=== PATIENT | male | born 1940 | race African-American/Black ===

== ENCOUNTER 2020-01-25 15:07 | Inpatient (IN) | payer MEDICARE, MEDICAID ==
[~2020-01-25] VITALS: Ht 188 cm; Wt 73.7 kg
[2020-01-25] MEDS ORDERED: SODIUM CHLORIDE 0.9% 1,000 ML IV ONE (15:39)
[2020-01-25] MEDS ORDERED: MORPHINE SULFATE 4 MG/ML CPJ (NOT FOR IM USE) IV STA (15:39)
[2020-01-25] MEDS ORDERED: ONDANSETRON HCL 4MG/2ML INJ IV STA (15:39)
[2020-01-25 17:40] LABS: CHLORIDE 95 mEq/L (98-107); PARTIAL THROMBOPLASTIN TIME 30.3 sec (23.4-31.0); PROTHROMBIN TIME 11.3 sec (9.6-11.0)
[2020-01-25 17:43] LABS: HEMATOCRIT. 46.6 % (42.0-52.0); HEMOGLOBIN. 15.9 g/dL (14.0-18.0); MEAN CORPUSCULAR VOLUME 90.6 fL (80.0-94.0); MEAN PLATELET VOLUME 7.5 fl (7.4-10.4); PLATELET 420 x1000/uL (130-400); RED BLOOD CELL COUNT 5.14 mill/uL (4.7-6.1); RED CELL DISTRIBUTION WIDTH 13.6 % (11.6-14.6)
[2020-01-25 17:44] LABS: ETHANOL BLOOD < 10 mg/dL
[2020-01-25 18:13] LABS: CLARITY URINE TURBID (CLEAR); KETONES URINE NEGATIVE (NEGATIVE); LEUKOCYTE ESTERASE URINE 3+ (NEGATIVE); NITRITE URINE NEGATIVE (NEGATIVE); OCCULT BLOOD URINE 3+ (NEGATIVE); PH URINE 5.5 (4.5-8.0); PROTEIN URINE 2+ (NEGATIVE); SPECIFIC GRAVITY URINE 1.019 (1.005-1.030); UROBILINOGEN URINE 0.2 E.U./dL (0.2-1.0)
[2020-01-25] MEDS ORDERED: SODIUM CHLORIDE 0.9% 1000ML BAG (SEPSIS BOLUS) IV ONE (18:15)
[2020-01-25] MEDS ORDERED: SODIUM POLYSTYRENE SULFONATE 15 G/60 ML BOT PO ONE (18:15)
[2020-01-25] MEDS ORDERED: SODIUM BICARBONATE 8.4% 1 MEQ/ML 50ML SYR IV ONE (18:15)
[2020-01-25] MEDS ORDERED: INSULIN REGULAR (HUMULIN R) 300UNITS/3ML IV ONE (18:15)
[2020-01-25] MEDS ORDERED: LEVOFLOXACIN 750MG PREMIX 150 ML IV ONE (18:15)
[2020-01-25] MEDS ORDERED: DEXTROSE 50% WATER 50ML SYRINGE IV ONE (18:15)
[2020-01-25] MEDS ORDERED: ALBUTEROL (0.083%) 2.5MG/3ML NEB HHN ONE (18:15)
[2020-01-25 18:21] LABS: COLOR URINE DARK YELLOW (YELLOW)
[2020-01-25 22:36] LABS: PLATELET ESTIMATE INCREASED
[2020-01-25] MEDS ORDERED: DEXT 5%/0.45% NACL 1000ML 1,000 ML IV SCH (23:39)
[2020-01-26] VITALS (7 sets, daily range): BP systolic 114–152; BP diastolic 60–83
[2020-01-26] MEDS ORDERED: MORPHINE SULFATE 2 MG/ML CPJ (NOT FOR IM USE) IV PRN (00:45)
[2020-01-26] MEDS ORDERED: SODIUM CHLORIDE 0.9% 1,000 ML IV SCH (01:00)
[2020-01-26 06:49] LABS: HEMATOCRIT. 44.5 % (42.0-52.0); HEMOGLOBIN. 14.9 g/dL (14.0-18.0); MEAN CORPUSCULAR HEMOGLOBIN 30.3 pg (28.0-32.0); MEAN CORPUSCULAR VOLUME 90.2 fL (80.0-94.0); MEAN PLATELET VOLUME 7.2 fl (7.4-10.4); PLATELET 372 x1000/uL (130-400); RED BLOOD CELL COUNT 4.93 mill/uL (4.7-6.1); RED CELL DISTRIBUTION WIDTH 13.4 % (11.6-14.6)
[2020-01-26] MEDS: CEFTRIAXONE 1 G PREMIX 50 ML IV SCH (09:28)
[2020-01-26 09:57] LABS: PLATELET ESTIMATE NORMAL
[2020-01-26] MEDS: SODIUM CHLORIDE 0.45% 1,000 ML IV SCH (11:37)
[2020-01-26 15:33] LABS: CREATINE KINASE 177 IU/L (39-308)
[2020-01-27] VITALS (7 sets, daily range): BP systolic 133–167; BP diastolic 62–97
[2020-01-27] MEDS: SODIUM CHLORIDE 0.45% 1,000 ML IV SCH (02:33)
[2020-01-27] MEDS: CEFTRIAXONE 1 G PREMIX 50 ML IV SCH (06:08)
[2020-01-27 06:10] LABS: CHLORIDE 115 mEq/L (98-107)
[2020-01-27 06:43] LABS: HEMATOCRIT. 39.3 % (42.0-52.0); HEMOGLOBIN. 13.4 g/dL (14.0-18.0); MEAN CORPUSCULAR HEMOGLOBIN 30.4 pg (28.0-32.0); MEAN CORPUSCULAR VOLUME 89.3 fL (80.0-94.0); MEAN PLATELET VOLUME 7.5 fl (7.4-10.4); PLATELET 291 x1000/uL (130-400); RED CELL DISTRIBUTION WIDTH 13.4 % (11.6-14.6)
[2020-01-27] MEDS ORDERED: POTASSIUM CHLORIDE 20MEQ TABLET SR PO NR (09:30)
[2020-01-27] MEDS ORDERED: DEXTROSE 5% WATER 1,000 ML IV SCH (09:30)
[2020-01-27] MEDS ORDERED: TAMS-11 MT (12:38)
[2020-01-27] MEDS ORDERED: LEVO500T2 MT (12:38)
[2020-01-27 13:20] LABS: PLATELET ESTIMATE NORMAL
[2020-01-27] MEDS: ENOXAPARIN 80MG/0.8ML SYR SUBCUT SCH (15:58)
[2020-01-28 04:00] VITALS: BP 139/69
[2020-01-28] MEDS: ENOXAPARIN 80MG/0.8ML SYR SUBCUT SCH ×2 (04:21→15:17)
[2020-01-28 05:48] LABS: BASOPHILS % 0.3 % (0.0-2.0); HEMATOCRIT. 41.5 % (42.0-52.0); LYMPHOCYTES % 7.2 % (20.0-50.0); MEAN CORPUSCULAR HEMOGLOBIN 30.5 pg (28.0-32.0); MEAN CORPUSCULAR VOLUME 90.1 fL (80.0-94.0); MEAN PLATELET VOLUME 7.7 fl (7.4-10.4); MONOCYTES % 11.8 % (2.0-8.0); NEUTROPHILS % 79.7 % (40.0-76.0); PLATELET 279 x1000/uL (130-400); RED CELL DISTRIBUTION WIDTH 13.3 % (11.6-14.6)
[2020-01-28 06:01] LABS: CHLORIDE 111 mEq/L (98-107)
[2020-01-28] MEDS: CEFTRIAXONE 1 G PREMIX 50 ML IV SCH (06:50)
[2020-01-28 08:00] VITALS: BP 131/76
[2020-01-28 12:00] VITALS: BP 147/90
[2020-01-28] MEDS ORDERED: POTASSIUM CHLORIDE 20MEQ TABLET SR PO SCH (12:15)
[2020-01-28 14:51] VITALS: BP 147/90
[2020-01-28 16:00] VITALS: BP 139/80
== END 2020-01-28 18:55 | disposition home or self-care (01) | DRG 871 ==
LOC: ER 15:07 → 6WST 18:13 → ENRESERV 22:53
PROVIDERS: ADMIT Internal Medicine; ATTEND Internal Medicine
DX: A41.9 Sepsis, unspecified organism (principal); J18.9 Pneumonia, unspecified organism; E44.1 Mild protein-calorie malnutrition; N17.9 Acute kidney failure, unspecified; N13.6 Pyonephrosis; E87.5 Hyperkalemia; E87.8 Other disorders of electrolyte and fluid balance, not elsewhere classified; N21.0 Calculus in bladder; Z68.20 Body mass index [BMI] 20.0-20.9, adult; N13.9 Obstructive and reflux uropathy, unspecified; I10 Essential (primary) hypertension; R31.0 Gross hematuria; N32.3 Diverticulum of bladder; N40.1 Benign prostatic hyperplasia with lower urinary tract symptoms
CPT/HCPCS: 36415; 71045; 74176; 80048; 80053; 80320; 81003; 82550; 82962; 83036; 83605; 83880; 84484; 85025; 86850; 86900; 93005; 93970; 94640; 96361; 96374; 96375; 97162; 99285; J0696; J1650; J1815; J1956; J2270; J2405; J3490; J7030; J7070; G0480

== ENCOUNTER 2020-02-18 16:21 | Inpatient (IN) | payer MEDICARE, MEDICAID ==
[~2020-02-18] VITALS: Ht 182.9 cm; Wt 81.6 kg
[~2020-02-18 16:21] MED LIST: LEVO500T2 MT; TAMS-11 MT
[2020-02-18 17:20] LABS: BASOPHILS % 0.7 % (0.0-2.0); EOSINOPHILS % 2.8 % (0.0-5.0); HEMATOCRIT. 39.7 % (42.0-52.0); HEMOGLOBIN. 13.6 g/dL (14.0-18.0); LYMPHOCYTES % 26.5 % (20.0-50.0); MEAN CORPUSCULAR HEMOGLOBIN 30.8 pg (28.0-32.0); MEAN CORPUSCULAR VOLUME 89.9 fL (80.0-94.0); MEAN PLATELET VOLUME 7.1 fl (7.4-10.4); MONOCYTES % 9.7 % (2.0-8.0); NEUTROPHILS % 60.3 % (40.0-76.0); PLATELET 324 x1000/uL (130-400); RED BLOOD CELL COUNT 4.41 mill/uL (4.7-6.1)
[2020-02-18 17:24] LABS: CHLORIDE 109 mEq/L (98-107)
[2020-02-18 17:26] LABS: INR 1.2; PROTHROMBIN TIME 12.7 sec (9.6-11.0)
[2020-02-18 19:11] LABS: CLARITY URINE CLOUDY (CLEAR); COLOR URINE RED (YELLOW); KETONES URINE NEGATIVE (NEGATIVE); LEUKOCYTE ESTERASE URINE 1+ (NEGATIVE); NITRITE URINE NEGATIVE (NEGATIVE); OCCULT BLOOD URINE 3+ (NEGATIVE); PH URINE 5.5 (4.5-8.0); PROTEIN URINE 3+ (NEGATIVE); UROBILINOGEN URINE 0.2 E.U./dL (0.2-1.0)
[2020-02-18] MEDS ORDERED: LEVOFLOXACIN 500MG TABLET PO ONE (19:45)
[2020-02-18] MEDS ORDERED: GUAIFENESIN 200MG/10ML SUGAR FREE UDC PO PRN (23:15)
[2020-02-18] MEDS ORDERED: MAGNESIUM/ALUMINUM HYDROXIDE/SIMETHICONE 30ML UDC PO PRN (23:15)
[2020-02-18] MEDS ORDERED: ONDANSETRON HCL 4MG/2ML INJ IV PRN (23:15)
[2020-02-18] MEDS ORDERED: HYDROCODONE/ACETAMINOPHEN 5/325MG TABLET PO PRN (23:15)
[2020-02-18] MEDS ORDERED: DOCUSATE SODIUM 100MG CAPSULE PO PRN (23:15)
[2020-02-18] MEDS ORDERED: CLONIDINE 0.1MG TABLET PO PRN (23:15)
[2020-02-18] MEDS ORDERED: ACETAMINOPHEN 325MG TABLET PO PRN (23:15)
[2020-02-19] MEDS: SODIUM CHLORIDE 0.45% 1,000 ML IV SCH ×3 (00:59→20:49)
[2020-02-19 06:09] LABS: BASOPHILS % 0.6 % (0.0-2.0); EOSINOPHILS % 3.8 % (0.0-5.0); HEMATOCRIT. 38.2 % (42.0-52.0); LYMPHOCYTES % 25.5 % (20.0-50.0); MEAN CORPUSCULAR HEMOGLOBIN 30.8 pg (28.0-32.0); MEAN CORPUSCULAR VOLUME 90.5 fL (80.0-94.0); MEAN PLATELET VOLUME 7.3 fl (7.4-10.4); MONOCYTES % 11.9 % (2.0-8.0); NEUTROPHILS % 58.2 % (40.0-76.0); PLATELET 263 x1000/uL (130-400); RED BLOOD CELL COUNT 4.22 mill/uL (4.7-6.1)
[2020-02-19 06:16] LABS: CHLORIDE 109 mEq/L (98-107)
[2020-02-19 12:00] VITALS: BP 143/79
[2020-02-19] MEDS: FINASTERIDE 5MG TABLET PO SCH (13:39)
[2020-02-19 16:00] VITALS: BP 116/70
[2020-02-19] MEDS ORDERED: APIXABAN 5 MG TABLET PO SCH (17:00)
[2020-02-19 20:00] VITALS: BP 133/77
[2020-02-19] MEDS ORDERED: LEVOFLOXACIN 500MG PREMIX 100 ML IV SCH (20:00)
[2020-02-19] MEDS ORDERED: TAMSULOSIN HCL 0.4MG SR CAPSULE PO SCH (21:00)
[2020-02-20] VITALS: BP 121/77
[2020-02-20 04:00] VITALS: BP 118/80
[2020-02-20] MEDS: SODIUM CHLORIDE 0.45% 1,000 ML IV SCH (05:04)
[2020-02-20 08:00] VITALS: BP 141/83
[2020-02-20 08:36] LABS: BASOPHILS % 0.6 % (0.0-2.0); EOSINOPHILS % 4.6 % (0.0-5.0); HEMATOCRIT. 39.6 % (42.0-52.0); HEMOGLOBIN. 13.7 g/dL (14.0-18.0); LYMPHOCYTES % 29.7 % (20.0-50.0); MEAN CORPUSCULAR HEMOGLOBIN 31.1 pg (28.0-32.0); MEAN PLATELET VOLUME 7.5 fl (7.4-10.4); MONOCYTES % 11.7 % (2.0-8.0); NEUTROPHILS % 53.4 % (40.0-76.0); PLATELET 261 x1000/uL (130-400)
[2020-02-20 08:39] LABS: CHLORIDE 108 mEq/L (98-107)
[2020-02-20] MEDS: FINASTERIDE 5MG TABLET PO SCH (08:47)
[2020-02-20] MEDS ORDERED: TAMS-11 PO (10:38)
[2020-02-20] MEDS ORDERED: FINA5TAB3 PO (10:39)
[2020-02-20] MEDS ORDERED: RIVA20TA MT (10:42)
[2020-02-20 10:49] VITALS: BP 141/83
[2020-02-20] MEDS ORDERED: RIVAROXABAN 20 MG TABLET PO SCH (17:00)
[2020-02-20] MEDS ORDERED: LEVOFLOXACIN 500MG TABLET PO SCH (20:00)
== END 2020-02-20 11:55 | disposition home health service (06) | DRG 690 ==
LOC: ER 16:21 → 6WST 20:22 → ENRESERV 02-19 09:45
PROVIDERS: ADMIT Hospitalist; ATTEND Hospitalist
DX: N39.0 Urinary tract infection, site not specified (principal); R31.0 Gross hematuria; N13.8 Other obstructive and reflux uropathy; I25.2 Old myocardial infarction; E78.5 Hyperlipidemia, unspecified; N40.1 Benign prostatic hyperplasia with lower urinary tract symptoms; I13.10 Hypertensive heart and chronic kidney disease without heart failure, with stage 1 through stage 4 chronic kidney disease, or unspecified chronic kidney disease; I25.10 Atherosclerotic heart disease of native coronary artery without angina pectoris; I49.3 Ventricular premature depolarization; N18.9 Chronic kidney disease, unspecified; N47.2 Paraphimosis; T45.515A Adverse effect of anticoagulants, initial encounter; Z79.01 Long term (current) use of anticoagulants; Z82.3 Family history of stroke; Z82.49 Family history of ischemic heart disease and other diseases of the circulatory system; Z95.5 Presence of coronary angioplasty implant and graft; Z88.0 Allergy status to penicillin; Z79.899 Other long term (current) drug therapy; Y92.89 Other specified places as the place of occurrence of the external cause; Z86.718 Personal history of other venous thrombosis and embolism
CPT/HCPCS: 36415; 80048; 80053; 81003; 85025; 93005; 99285; J1956

== ENCOUNTER 2022-06-07 15:05 | Emergency (ER) | payer MEDICARE, MEDICAID ==
[~2022-06-07] VITALS: Ht 188 cm; Wt 82.0 kg
[~2022-06-07 15:05] MED LIST changes: +FINA5TAB3 PO; +RIVA20TA MT; +TAMS-11 PO
[2022-06-07 15:11] VITALS: BP 149/75
[2022-06-07] MEDS ORDERED: ACETAMINOPHEN 325MG TABLET PO STA (15:17)
[2022-06-07 15:47] LABS: BASOPHILS % 0.2 % (0.0-2.0); EOSINOPHILS % 1.7 % (0.0-5.0); HEMATOCRIT. 45.9 % (42.0-52.0); HEMOGLOBIN. 15.4 g/dL (14.0-18.0); LYMPHOCYTES % 19.1 % (20.0-50.0); MEAN CORPUSCULAR HEMOGLOBIN 30.6 pg (28.0-32.0); MEAN CORPUSCULAR VOLUME 91.5 fL (80.0-94.0); MEAN PLATELET VOLUME 8.9 fl (7.4-10.4); MONOCYTES % 11.5 % (2.0-8.0); NEUTROPHILS % 67.5 % (40.0-76.0); PLATELET 211 x1000/uL (130-400); RED BLOOD CELL COUNT 5.02 mill/uL (4.7-6.1); RED CELL DISTRIBUTION WIDTH 14.2 % (11.6-14.6)
[2022-06-07 15:48] LABS: CHLORIDE 106 mEq/L (98-107)
== END 2022-06-07 16:43 | disposition left against medical advice (07) ==
LOC: ER 15:05
DX: R10.9 Unspecified abdominal pain (principal); R07.89 Other chest pain; I12.9 Hypertensive chronic kidney disease with stage 1 through stage 4 chronic kidney disease, or unspecified chronic kidney disease; N18.9 Chronic kidney disease, unspecified; Z88.0 Allergy status to penicillin; Z86.718 Personal history of other venous thrombosis and embolism
CPT/HCPCS: 36415; 71045; 80053; 83880; 84484; 85025; 93005; 99285

== ENCOUNTER 2022-08-19 19:55 | Emergency (ER) | payer MEDICARE, MEDICAID ==
[~2022-08-19] VITALS: Ht 190.5 cm; Wt 79.0 kg
[2022-08-19 19:57] VITALS: BP 154/72
== END 2022-08-19 20:56 | disposition left against medical advice (07) ==
LOC: ER 19:55
DX: Z53.21 Procedure and treatment not carried out due to patient leaving prior to being seen by health care provider (principal); Z88.0 Allergy status to penicillin

== ENCOUNTER 2024-03-31 22:10 | Inpatient (IN) | payer MEDICARE, MEDICAID ==
[~2024-03-31] VITALS: Ht 188 cm; Wt 73.5 kg
[~2024-03-31 22:10] MED LIST changes: +FINA-37 PO; -FINA5TAB3 PO
[2024-03-31 22:20] VITALS: BP 131/76; PULSE 90; RESP 18; TEMP 97.7
[2024-03-31] MEDS ORDERED: GUAIFENESIN 200MG/10ML SUGAR FREE UDC PO PRN (23:15)
[2024-03-31] MEDS ORDERED: ACETAMINOPHEN 325MG TABLET PO PRN (23:15)
[2024-03-31] MEDS ORDERED: CLONIDINE 0.1MG TABLET PO PRN (23:15)
[2024-03-31] MEDS ORDERED: ONDANSETRON HCL 4MG/2ML INJ IV PRN (23:15)
[2024-04-01] MEDS ORDERED: AMLO10TA80 PO (06:18)
[2024-04-01] MEDS: MEROPENEM 1G/100ML IV NR (06:19)
[2024-04-01 07:30] LABS: HEMATOCRIT. 34.6 % (42.0-52.0); HEMOGLOBIN. 11.9 g/dL (14.0-18.0); MEAN CORPUSCULAR HEMOGLOBIN 31.6 pg (28.0-32.0); MEAN CORPUSCULAR HGB CONC 34.4 g/dL (31.0-37.0); MEAN CORPUSCULAR VOLUME 91.9 fL (80.0-94.0); MEAN PLATELET VOLUME 7.4 fl (7.4-10.4); PLATELET 165 x1000/uL (130-400); RED BLOOD CELL COUNT 3.76 mill/uL (4.7-6.1); RED CELL DISTRIBUTION WIDTH 16.1 % (11.6-14.6); WHITE BLOOD COUNT 6.3 x1000/uL (4.5-11.0)
[2024-04-01 07:41] LABS: DIFFERENTIAL COMMENT 1
[2024-04-01 07:45] LABS: CHLORIDE 111 mEq/L (98-107); POTASSIUM 3.3 mEq/L (3.5-5.1); SODIUM 144 mEq/L (136-145)
[2024-04-01 07:48] LABS: CARBON DIOXIDE 24 mEq/L (21-32)
[2024-04-01 07:49] LABS: CALCIUM 8.8 mg/dL (8.7-10.4)
[2024-04-01 07:53] LABS: CREATININE 1.2 mg/dL (0.6-1.3); GLUCOSE 97 mg/dL (70-105)
[2024-04-01 07:54] LABS: ALANINE AMINOTRANSFERASE 12 IU/L (10-49); UREA NITROGEN BLOOD 20 mg/dL (9-23)
[2024-04-01 07:55] LABS: ALBUMIN 3.2 g/dL (3.2-4.8)
[2024-04-01 07:56] LABS: ASPARTATE AMINOTRANSFERASE 16 IU/L (<34); BILIRUBIN TOTAL 0.5 mg/dL (0.1-1.0); PHOSPHORUS 2.4 mg/dL (2.5-4.9); PROTEIN TOTAL 5.4 g/dL (6.0-8.3)
[2024-04-01 08:00] VITALS: BP 165/90; PULSE 93; RESP 18; TEMP 97.6
[2024-04-01 08:10] LABS: CLARITY URINE CLOUDY (CLEAR); COLOR URINE YELLOW (YELLOW); GLUCOSE URINE NEGATIVE (NEGATIVE); KETONES URINE TRACE (NEGATIVE); LEUKOCYTE ESTERASE URINE 3+ (NEGATIVE); NITRITE URINE NEGATIVE (NEGATIVE); OCCULT BLOOD URINE 3+ (NEGATIVE); PROTEIN URINE 1+ (NEGATIVE); SPECIFIC GRAVITY URINE 1.012 (1.005-1.030)
[2024-04-01] MEDS: TAMSULOSIN HCL 0.4MG SR CAPSULE PO SCH (08:49)
[2024-04-01] MEDS: LOSARTAN 100 MG TABLET PO SCH (08:49)
[2024-04-01] MEDS: CARVEDILOL 6.25 MG TABLET PO SCH (08:49)
[2024-04-01] MEDS: CLOPIDOGREL 75MG TABLET PO SCH (08:49)
[2024-04-01] MEDS: FINASTERIDE 5MG TABLET PO SCH (08:49)
[2024-04-01] MEDS: ASPIRIN 81MG EC TABLET PO SCH (08:52)
[2024-04-01] MEDS: ENOXAPARIN 30MG/0.3ML SYR SUBCUT SCH (08:53)
[2024-04-01 08:58] LABS: PREALBUMIN < 5.0 mg/dl (10.0-40.0)
[2024-04-01] MEDS ORDERED: ENOXAPARIN 40MG/0.4ML SYR SUBCUT SCH (09:00)
[2024-04-01 09:15] LABS: SQUAMOUS EPITHELIAL CELL URINE NONE SEEN /lpf (RARE/1+)
[2024-04-01 09:16] LABS: BACTERIA URINE 1+
[2024-04-01 09:17] LABS: RBC URINE 15-25 /hpf (0-2); WBC URINE TNTC /hpf (0-2)
[2024-04-01] MEDS: POTASSIUM CHLORIDE 20MEQ TABLET SR PO NR (12:15)
[2024-04-01 17:46] LABS: PLATELET ESTIMATE NORMAL
[2024-04-01 19:57] VITALS: BP 139/52; PULSE 77; RESP 18; TEMP 98.1
[2024-04-01] MEDS: ATORVASTATIN CALCIUM 40MG TABLET PO SCH (21:16)
[2024-04-01] MEDS: MEROPENEM 1G/100ML 100 ML IV SCH (21:17)
[2024-04-02 06:27] LABS: CARBON DIOXIDE 27 mEq/L (21-32); CHLORIDE 110 mEq/L (98-107); POTASSIUM 3.7 mEq/L (3.5-5.1); SODIUM 143 mEq/L (136-145)
[2024-04-02 06:28] LABS: CALCIUM 9.1 mg/dL (8.7-10.4)
[2024-04-02 06:32] LABS: AMMONIA < 17 uMol/L (<32); IRON 57 ug/dL (65-175)
[2024-04-02 06:33] LABS: CREATININE 0.8 mg/dL (0.6-1.3); GLUCOSE 90 mg/dL (70-105); TRIGLYCERIDE 146 mg/dL (0-150); UREA NITROGEN BLOOD 13 mg/dL (9-23)
[2024-04-02 06:34] LABS: ALANINE AMINOTRANSFERASE 12 IU/L (10-49); ALBUMIN 3.5 g/dL (3.2-4.8); ASPARTATE AMINOTRANSFERASE 17 IU/L (<34); HEMOGLOBIN. 12.8 g/dL (14.0-18.0); LDL CHOLESTEROL 95 mg/dL (5-100); MEAN CORPUSCULAR HEMOGLOBIN 31.7 pg (28.0-32.0); MEAN CORPUSCULAR HGB CONC 34.7 g/dL (31.0-37.0); MEAN CORPUSCULAR VOLUME 91.3 fL (80.0-94.0); MEAN PLATELET VOLUME 7.5 fl (7.4-10.4); PLATELET 199 x1000/uL (130-400); RED BLOOD CELL COUNT 4.05 mill/uL (4.7-6.1); RED CELL DISTRIBUTION WIDTH 15.9 % (11.6-14.6); WHITE BLOOD COUNT 6.8 x1000/uL (4.5-11.0)
[2024-04-02 06:35] LABS: BILIRUBIN TOTAL 0.5 mg/dL (0.1-1.0); CHOLESTEROL 145 mg/dL (<200); HDL CHOLESTEROL 22 mg/dL (>55); PHOSPHORUS 2.1 mg/dL (2.5-4.9); PROTEIN TOTAL 5.8 g/dL (6.0-8.3); TOTAL IRON BINDING CAPACITY 445 ug/dl (250-425)
[2024-04-02 06:36] LABS: THYROID STIMULATING HORMONE 2.41 uIU/mL (0.55-4.78)
[2024-04-02 06:50] LABS: DIFFERENTIAL COMMENT 1
[2024-04-02 06:51] LABS: FERRITIN 411 ng/mL (22-322)
[2024-04-02 06:52] LABS: FOLIC ACID (FOLATE) SERUM 2.23 ng/mL (>5.38)
[2024-04-02 06:53] LABS: VITAMIN B12 SERUM 260 pg/mL (211-911)
[2024-04-02 07:55] VITALS: BP 154/86; PULSE 92; RESP 20; TEMP 98.1
[2024-04-02] MEDS: MEROPENEM 1G/100ML IV SCH (12:00)
[2024-04-02] MEDS: MAGNESIUM 2 G PREMIX 50 ML IV NR (12:30)
[2024-04-02] MEDS: POTASSIUM PHOSPHATE 15 MMOL in DEXT 5% WATER 245 ML IV NR (12:30)
[2024-04-02] MEDS: POTASSIUM-SODIUM PHOSPHATE POWDER PACKET PO NR (13:45)
[2024-04-02] MEDS: MAGNESIUM OXIDE 400MG TABLET PO SCH (14:00)
[2024-04-02 15:44] LABS: PLATELET ESTIMATE NORMAL
[2024-04-02] MEDS: FERROUS SULFATE 325MG TABLET PO SCH (17:29)
[2024-04-02] MEDS: CYANOCOBALAMIN 1000MCG/ML VIAL IM SCH (17:29)
[2024-04-02 20:00] VITALS: BP 158/92; PULSE 86; RESP 19; TEMP 98.4
[2024-04-03 07:00] LABS: HEMATOCRIT. 37.4 % (42.0-52.0); HEMOGLOBIN. 12.6 g/dL (14.0-18.0); MEAN CORPUSCULAR HEMOGLOBIN 31.1 pg (28.0-32.0); MEAN CORPUSCULAR HGB CONC 33.7 g/dL (31.0-37.0); MEAN CORPUSCULAR VOLUME 92.2 fL (80.0-94.0); MEAN PLATELET VOLUME 7.2 fl (7.4-10.4); PLATELET 242 x1000/uL (130-400); RED BLOOD CELL COUNT 4.05 mill/uL (4.7-6.1); RED CELL DISTRIBUTION WIDTH 15.4 % (11.6-14.6); WHITE BLOOD COUNT 6.6 x1000/uL (4.5-11.0)
[2024-04-03 07:37] LABS: CARBON DIOXIDE 29 mEq/L (21-32); CHLORIDE 107 mEq/L (98-107); POTASSIUM 3.4 mEq/L (3.5-5.1); SODIUM 143 mEq/L (136-145)
[2024-04-03 07:42] LABS: CREATININE 0.7 mg/dL (0.6-1.3); GLUCOSE 114 mg/dL (70-105)
[2024-04-03 07:43] LABS: UREA NITROGEN BLOOD 11 mg/dL (9-23)
[2024-04-03 07:45] LABS: PHOSPHORUS 2.3 mg/dL (2.5-4.9)
[2024-04-03 07:48] LABS: DIFFERENTIAL COMMENT 1
[2024-04-03 08:00] VITALS: BP 142/89; PULSE 86; RESP 18; TEMP 97
[2024-04-03] MEDS: ASCORBIC ACID 500 MG TABLET PO SCH (08:24)
[2024-04-03] MEDS: FOLIC ACID 1MG TABLET PO SCH (08:26)
[2024-04-03 09:59] LABS: PLATELET ESTIMATE NORMAL
[2024-04-03] MEDS: POTASSIUM-SODIUM PHOSPHATE POWDER PACKET PO NR (12:55)
[2024-04-03] MEDS: POTASSIUM CHLORIDE 20MEQ TABLET SR PO NR (12:55)
[2024-04-03] MEDS: ERGOCALCIFEROL 50000UNITS CAPSULE PO SCH (16:22)
[2024-04-03 20:00] VITALS: BP 142/88; PULSE 86; RESP 19; TEMP 98
[2024-04-04 08:00] VITALS: BP 135/79; PULSE 77; RESP 20; TEMP 97.8
[2024-04-04 20:00] VITALS: BP 156/85; PULSE 63; RESP 19; TEMP 96.3
[2024-04-05 07:39] LABS: CHLORIDE 107 mEq/L (98-107); POTASSIUM 4.4 mEq/L (3.5-5.1); SODIUM 139 mEq/L (136-145)
[2024-04-05 07:40] LABS: CARBON DIOXIDE 28 mEq/L (21-32)
[2024-04-05 07:45] LABS: CREATININE 0.8 mg/dL (0.6-1.3); GLUCOSE 86 mg/dL (70-105); UREA NITROGEN BLOOD 10 mg/dL (9-23)
[2024-04-05 07:47] LABS: PHOSPHORUS 2.7 mg/dL (2.5-4.9)
[2024-04-05 08:00] VITALS: BP 145/75; PULSE 99; RESP 18; TEMP 98
[2024-04-05 08:02] LABS: HEMATOCRIT. 40.3 % (42.0-52.0); HEMOGLOBIN. 13.7 g/dL (14.0-18.0); MEAN CORPUSCULAR HEMOGLOBIN 31.4 pg (28.0-32.0); MEAN CORPUSCULAR HGB CONC 33.9 g/dL (31.0-37.0); MEAN CORPUSCULAR VOLUME 92.5 fL (80.0-94.0); MEAN PLATELET VOLUME 7.7 fl (7.4-10.4); PLATELET 267 x1000/uL (130-400); RED BLOOD CELL COUNT 4.36 mill/uL (4.7-6.1); RED CELL DISTRIBUTION WIDTH 15.2 % (11.6-14.6); WHITE BLOOD COUNT 6.9 x1000/uL (4.5-11.0)
[2024-04-05 08:13] LABS: DIFFERENTIAL COMMENT 1
[2024-04-05 14:18] LABS: PLATELET ESTIMATE NORMAL
[2024-04-05 20:00] VITALS: BP 134/80; PULSE 88; RESP 20; TEMP 97.9
[2024-04-06] MEDS: DOCUSATE SODIUM 100MG CAPSULE PO PRN (06:02)
[2024-04-06 08:00] VITALS: BP 143/65; PULSE 80; RESP 17; TEMP 97
[2024-04-06 20:00] VITALS: BP 99/77; PULSE 76; RESP 17; TEMP 99
[2024-04-07 06:45] LABS: BASOPHILS % 0.4 % (0.0-2.0); EOSINOPHILS % 2.5 % (0.0-5.0); HEMOGLOBIN. 13.7 g/dL (14.0-18.0); LYMPHOCYTES % 26.3 % (20.0-50.0); MEAN CORPUSCULAR HEMOGLOBIN 31.3 pg (28.0-32.0); MEAN CORPUSCULAR HGB CONC 34.2 g/dL (31.0-37.0); MEAN CORPUSCULAR VOLUME 91.7 fL (80.0-94.0); MEAN PLATELET VOLUME 7.4 fl (7.4-10.4); MONOCYTES % 11.2 % (2.0-8.0); NEUTROPHILS % 59.6 % (40.0-76.0); PLATELET 339 x1000/uL (130-400); RED BLOOD CELL COUNT 4.37 mill/uL (4.7-6.1); RED CELL DISTRIBUTION WIDTH 15.2 % (11.6-14.6); WHITE BLOOD COUNT 8.3 x1000/uL (4.5-11.0)
[2024-04-07 07:05] LABS: CALCIUM 9.5 mg/dL (8.7-10.4); CARBON DIOXIDE 31 mEq/L (21-32); CHLORIDE 104 mEq/L (98-107); SODIUM 139 mEq/L (136-145)
[2024-04-07 07:11] LABS: CREATININE 0.8 mg/dL (0.6-1.3); GLUCOSE 99 mg/dL (70-105); UREA NITROGEN BLOOD 11 mg/dL (9-23)
[2024-04-07 07:13] LABS: PHOSPHORUS 2.7 mg/dL (2.5-4.9)
[2024-04-07 08:00] VITALS: BP 166/74; PULSE 82; RESP 19; TEMP 97.5
[2024-04-07 20:00] VITALS: BP 132/71; PULSE 88; RESP 20; TEMP 98.3
[2024-04-08 08:00] VITALS: BP 138/76; PULSE 86; RESP 20; TEMP 98
[2024-04-08 20:00] VITALS: BP 141/86; PULSE 51; RESP 20; TEMP 97.1
[2024-04-09] VITALS: BP 127/66; PULSE 65; RESP 18; TEMP 97
[2024-04-09 08:00] VITALS: BP 135/78; PULSE 79; RESP 20; TEMP 97.5
[2024-04-09] MEDS ORDERED: LACTULOSE 20G/30ML UDC PO PRN (10:15)
[2024-04-09] MEDS: LACTULOSE 20G/30ML UDC PO PRN (17:58)
[2024-04-09 20:00] VITALS: BP 121/77; PULSE 83; RESP 19; TEMP 98.6
[2024-04-10 08:00] VITALS: BP 144/75; PULSE 95; RESP 18; TEMP 96.9
[2024-04-10] MEDS: ERGOCALCIFEROL 50000UNITS CAPSULE PO SCH (14:25)
[2024-04-10 19:59] VITALS: BP 139/88; PULSE 77; RESP 19; TEMP 97.2
[2024-04-11 06:53] LABS: BASOPHILS % 0.8 % (0.0-2.0); EOSINOPHILS % 3.1 % (0.0-5.0); HEMATOCRIT. 38.5 % (42.0-52.0); MEAN CORPUSCULAR HEMOGLOBIN 31.2 pg (28.0-32.0); MEAN CORPUSCULAR HGB CONC 33.8 g/dL (31.0-37.0); MEAN CORPUSCULAR VOLUME 92.3 fL (80.0-94.0); MEAN PLATELET VOLUME 7.8 fl (7.4-10.4); MONOCYTES % 13.5 % (2.0-8.0); NEUTROPHILS % 51.6 % (40.0-76.0); PLATELET 390 x1000/uL (130-400); RED BLOOD CELL COUNT 4.17 mill/uL (4.7-6.1); RED CELL DISTRIBUTION WIDTH 14.8 % (11.6-14.6); WHITE BLOOD COUNT 5.3 x1000/uL (4.5-11.0)
[2024-04-11 07:47] LABS: CARBON DIOXIDE 29 mEq/L (21-32); CHLORIDE 104 mEq/L (98-107); POTASSIUM 4.3 mEq/L (3.5-5.1); SODIUM 138 mEq/L (136-145)
[2024-04-11 07:48] LABS: CALCIUM 10.4 mg/dL (8.7-10.4)
[2024-04-11 07:52] LABS: CREATININE 1.1 mg/dL (0.6-1.3); GLUCOSE 96 mg/dL (70-105)
[2024-04-11 07:53] LABS: UREA NITROGEN BLOOD 16 mg/dL (9-23)
[2024-04-11 07:55] LABS: PHOSPHORUS 2.9 mg/dL (2.5-4.9)
[2024-04-11 08:00] VITALS: BP 129/79; PULSE 78; RESP 19; TEMP 97.9
[2024-04-11 20:00] VITALS: BP 123/76; PULSE 83; RESP 17; TEMP 97.7
[2024-04-12 07:56] VITALS: BP 117/47; PULSE 79; RESP 18; TEMP 97.9
[2024-04-12 09:51] VITALS: BP 117/47; PULSE 79; TEMP 97.9
== END 2024-04-12 14:45 | disposition home health service (06) | DRG 64 ==
PROVIDERS: ADMIT Physical Medicine & Rehabilitation Spinal Cord Injury Medicine; ATTEND Hospitalist
DX: I63.9 Cerebral infarction, unspecified (principal); A41.9 Sepsis, unspecified organism; G82.50 Quadriplegia, unspecified; G93.41 Metabolic encephalopathy; J18.9 Pneumonia, unspecified organism; N17.0 Acute kidney failure with tubular necrosis; I47.10 Supraventricular tachycardia, unspecified; N13.6 Pyonephrosis; N13.8 Other obstructive and reflux uropathy; D64.9 Anemia, unspecified; F41.9 Anxiety disorder, unspecified; N40.1 Benign prostatic hyperplasia with lower urinary tract symptoms; R13.10 Dysphagia, unspecified; R53.81 Other malaise; R26.9 Unspecified abnormalities of gait and mobility; M75.02 Adhesive capsulitis of left shoulder; M75.01 Adhesive capsulitis of right shoulder; F14.90 Cocaine use, unspecified, uncomplicated; R79.89 Other specified abnormal findings of blood chemistry; R91.1 Solitary pulmonary nodule; F32.A Depression, unspecified; I12.9 Hypertensive chronic kidney disease with stage 1 through stage 4 chronic kidney disease, or unspecified chronic kidney disease; N18.9 Chronic kidney disease, unspecified; E53.8 Deficiency of other specified B group vitamins; E55.9 Vitamin D deficiency, unspecified; Z91.81 History of falling; Z88.0 Allergy status to penicillin; Z86.718 Personal history of other venous thrombosis and embolism
CPT/HCPCS: 36415; 80048; 80053; 80061; 81003; 82140; 82306; 82607; 82728; 82746; 83036; 83540; 83550; 83735; 84100; 84134; 84443; 85025; 92523; 92610; 93880; 97110; 97116; 97162; 97166; 97530; 97535; A6261; J1650; J2185; J3420; J3475; J3490; J7060; A5200